=== PATIENT | female | born 1930 | race Caucasian/White ===

== ENCOUNTER 2019-01-01 18:12 | Emergency (ER) | payer MEDICARE, BC ==
--- NOTE | 2019-01-01 18:26 | EDM.PDOC ---
ED HPI GENERAL MEDICAL PROBLEM - General Chief Complaint: Neuro Symptoms/Deficits Stated Complaint: code green Time Seen by Provider: 01/01/19 18:12 Source of Information: Reports: EMS, Family - History of Present Illness INITIAL COMMENTS - FREE TEXT/NARRATIVE: Patient comes into the emergency department by EMS as a code green. Family the patient had contacted 911 regarding abnormal speech disturbance on telephone. Family states that the patient was not making any sense during a telephone conversation and they alerted EMS. EMS on scene said the patient was not answering any questions appropriately initially they did do a blood sugar which showed 60. They also did an EKG which showed a bundle branch block-the patient does have extensive history cardiac disease. Prior to the patient presenting to the emergency department EMS state the patient was beginning to follow some commands. Nursing personnel emergency department had actually contacted patient one hour prior to her presenting to the ER and also earlier in the day. For an infusion of iron. Family's best recollection of last known well was approximately 9:30 AM today. Quality: Reports: Other Severity: Mild Improves with: Reports: None Worsens with: Reports: None Associated Symptoms: Reports: No Other Symptoms Treatments [employer]: Reports: IV/IO, See EMS Report - Related Data Allergies Allergy/AdvReac Type Severity Reaction Status Date / Time HOSSEIN Inhibitors Allergy Other Verified 10/01/18 09:13 prednisone Allergy Other Verified 10/01/18 09:13 baclofen AdvReac Confusion Verified 10/01/18 09:13 metronidazole [From Flagyl] AdvReac Nausea Verified 10/01/18 09:13 Home Meds: Home Meds Aspirin [Ecotrin] 81 mg PO DAILY 09/26/15 [History] Calcium Carbonate/Vitamin D2 [Oyster Shell Calcium-Vit D Tab] 1 each PO DAILY [History] Clobetasol Propionate/Emoll [Temovate Emollient 0.05%] 60 gm TP BID 09/26/15 [ History] Diclofenac Sodium [Voltaren 1% Gel] 100 gm TOP QID 09/26/15 [History] Estrogens, Conjugated [Premarin Vaginal Crm] 0.5 gm VAG Q3D 09/26/15 [History] Furosemide [Lasix] 20 mg PO DAILY 09/26/15 [History] Insulin Detemir [Levemir Flextouch] 13 unit SQ BID 09/26/15 [History] Insulin Lispro [Humalog] 100 unit SQ ASDIRECTED 09/26/15 [History] Metoprolol Tartrate [Lopressor] 50 mg PO TID 09/26/15 [History] Psyllium with Sucrose [Metamucil] 1 each PO DAILY 09/26/15 [History] amLODIPine [Norvasc] 5 mg PO BEDTIME 09/26/15 [History] cloNIDine HCl [Catapres] 0.3 mg PO TID 09/26/15 [History] traMADol HCl [Ultram] 50 mg PO DAILY 09/26/15 [History] Albuterol [Ventolin HFA] 1 puff INH Q4HR PRN 10/01/18 [History] Ascorbate Calcium [Vitamin C] 500 mg PO DAILY 10/01/18 [History] Escitalopram [Lexapro] 10 mg PO DAILY 10/01/18 [History] Multivitamin with Iron [Multivitamins with Iron] 1 each PO DAILY 10/01/18 [ History] Omeprazole 20 mg PO DAILY 10/01/18 [History] Ondansetron [Zofran] 4 mg PO Q6H PRN 10/01/18 [History] Pravastatin [Pravachol] 10 mg PO DAILY 10/01/18 [History] hydrALAZINE [Apresoline] 75 mg PO TID 10/01/18 [History] Past Medical History HEENT History: Reports: Cataract Cardiovascular History: Reports: Heart Failure, High Cholesterol, Hypertension Genitourinary History: Reports: Chronic Renal Insuffiency Endocrine/Metabolic History: Reports: Diabetes, Type II ED ROS GENERAL - Review of Systems Review Of Systems: See Below Constitutional: Reports: No Symptoms ED EXAM, GENERAL - Physical Exam Exam: See Below Exam Limited By: No Limitations General Appearance: Alert, WD/WN Eye Exam: Bilateral Eye: EOMI, PERRL Nose: Normal Inspection Head: Atraumatic, Normocephalic Respiratory/Chest: No Respiratory Distress, Lungs Clear, Normal Breath Sounds, No Accessory Muscle Use Cardiovascular: Normal Peripheral Pulses, Regular Rate, Rhythm, No Edema GI/Abdominal: Normal Bowel Sounds, Soft, Non-Tender, No Distention Back Exam: Normal Inspection, Full Range of Motion Extremities: Normal Inspection, Normal Range of Motion, No Pedal Edema Neurological: Alert, Oriented, Normal Reflexes Psychiatric: Normal Affect, Normal Mood Skin Exam: Warm, Dry, Intact, Normal Color Course - Vital Signs Last Recorded V/S: Last Vital Signs Temp 36.1 C 01/01/19 18:20 Pulse 57 L 01/01/19 18:20 Resp 14 01/01/19 18:20 BP 174/59 H 01/01/19 18:20 Pulse Ox 95 01/01/19 18:20 - Orders/Labs/Meds Orders: Active Orders 24 hr Category Date Time Status INR,PT,PROTHROMBIN TIME [COAG] Routine Lab 01/01/19 18:30 Received PTT,PARTIAL THROMBOPLSTIN TIME [COAG] Routine Lab 01/01/19 18:30 Received Labs: Laboratory Tests 01/01/19 01/01/19 01/01/19 Range/Units 18:30 18:30 18:34 WBC 11.9 H (4.0-10.0) x10^3/uL RBC 3.36 L (4.00-5.50) x10^6/uL Hgb 10.2 L (12.0-16.0) g/dL Hct 32.3 L (33.0-47.0) % MCV 96.1 H (78.0-93.0) fL MCH 30.4 (26.0-32.0) pg MCHC 31.6 L (32.0-36.0) g/dL RDW Coeff of Ignacia 13.7 (10.0-15.0) % Plt Count 211 (130-400) x10^3/uL Neut % (Auto) 80.3 H (50.0-80.0) % Lymph % (Auto) 13.9 L (25.0-50.0) % Emmet % (Auto) 4.8 (2.0-11.0) % Eos % (Auto) 0.8 (0.0-4.0) % Baso % (Auto) 0.2 (0.2-1.2) % Sodium 142 (136-145) mmol/L Potassium 4.5 (3.5-5.1) mmol/L Chloride 106 (98-107) mmol/L Carbon Dioxide 25 (21-32) mmol/L Anion Gap 15.5 (10-20) mmol/L BUN 31 H (7-18) mg/dL Creatinine 2.1 H (0.55-1.02) mg/dL Est Cr Clr Drug Dosing TNP Estimated GFR (MDRD) 22 Glucose 63 L (74-106) mg/dL POC Glucose 54 L (74-106) mg/dL Calcium 9.3 (8.5-10.1) mg/dL POC Troponin I (0.00-0.08) ng/mL 01/01/19 Range/Units 18:37 WBC (4.0-10.0) x10^3/uL RBC (4.00-5.50) x10^6/uL Hgb (12.0-16.0) g/dL Hct (33.0-47.0) % MCV (78.0-93.0) fL MCH (26.0-32.0) pg MCHC (32.0-36.0) g/dL RDW Coeff of Ignacia (10.0-15.0) % Plt Count (130-400) x10^3/uL Neut % (Auto) (50.0-80.0) % Lymph % (Auto) (25.0-50.0) % Emmet % (Auto) (2.0-11.0) % Eos % (Auto) (0.0-4.0) % Baso % (Auto) (0.2-1.2) % Sodium (136-145) mmol/L Potassium (3.5-5.1) mmol/L Chloride (98-107) mmol/L Carbon Dioxide (21-32) mmol/L Anion Gap (10-20) mmol/L BUN (7-18) mg/dL Creatinine (0.55-1.02) mg/dL Est Cr Clr Drug Dosing Estimated GFR (MDRD) Glucose (74-106) mg/dL POC Glucose (74-106) mg/dL Calcium (8.5-10.1) mg/dL POC Troponin I 0.00 (0.00-0.08) ng/mL Meds: Medications Discontinued Medications Generic Name Dose Route Start Last Admin Trade Name Freq PRN Reason Stop Dose Admin Dextrose Confirm 01/01/19 18:40 01/01/19 18:40 Glutose 15 Administered 01/01/19 18:41 15 gm Dose Administration 15 gm .ROUTE .STK-MED ONE Dextrose 15 gm 01/01/19 18:49 Glutose 15 PO 01/01/19 18:50 ONETIME ONE Departure - Departure Time of Disposition: 18:57 Disposition: Home, Self-Care 01 Condition: Fair Clinical Impression: Cerebral embolism - Discharge Information *PRESCRIPTION DRUG MONITORING PROGRAM REVIEWED*: Not Applicable *COPY OF PRESCRIPTION DRUG MONITORING REPORT IN PATIENT BRIDGET: Not Applicable Forms: Interfacility Transfer EMTALA - Problem List Review Problem List Initiated/Reviewed/Updated: Yes - My Orders Last 24 Hours: My Active Orders 01/01/19 18:30 INR,PT,PROTHROMBIN TIME [COAG] Routine PTT,PARTIAL THROMBOPLSTIN TIME [COAG] Routine - Assessment/Plan Last 24 Hours: My Active Orders 01/01/19 18:30 INR,PT,PROTHROMBIN TIME [COAG] Routine PTT,PARTIAL THROMBOPLSTIN TIME [COAG] Routine Assessment:: neurological deficits Plan: 1. CT of the head completed in the emergency department. Results reviewed with patient and family 2. Labs completed emergency department. Results reviewed with patient and family 3. Stroke protocol followed NIH-2 4. 1840 Radiology contacted regarding an emboli formation in the left middle cerebral artery 5. 1845 [facility] once call contacted. 1856 Dr. Baugh contacted 6. Blood sugar in ER is 54. Pt is NPO and has not eaten. Glucagon oral given at the bedside 7. Dr. Baugh requesting emergent transfer for possible thrombectomy since the patient is outside the window for TPA. 8. 1858 EMS contacted regarding transfer. Family and patient is updated and all questions and concerns addressed prior to discharge
[2019-01-01] MEDS: Glucose Gel 15 GM in 37.5 GM Tube ONE (18:40)
[2019-01-01 18:41] VITALS: BP 174/59
--- NOTE | 2019-01-01 18:46 | CT ---
[id number] CT/CT Head Stroke Protocol Exam: CT Head Stroke Protocol Clinical Data: NEUROLOGIC DEFICIT COMPARISON: CORRELATION IS MADE WITH THE EXAM OF JULY 30, 2018. FINDINGS: A tiny punctate hyperdensity is seen in the left central sulcus on image 37, series 2. This is not seen in review of the last exam. This is consistent with a tiny embolus in the angular branch of the left middle cerebral artery. There is subtle hypodensity in the insular cortex on the left. This is seen on image 23, series 2. This appears to have been present previously on the last exam, on image 20, series 2. There is no mass or mass effect. There is no hemorrhage or hydrocephalus. There are no extra-axial fluid collections. There may be an additional punctate embolus in the region of the sylvian fissure on the left corresponding to the M2/M3 distribution of the left middle cerebral artery. This would affect the anterior division of the left middle cerebral artery and potentially explain the speech abnormality or Broca's aphasia in Brodmann's area 44. Report called at time of the dictation. The aspect score is 10. IMPRESSION: ABOVE DESCRIBED FINDINGS CONSISTENT WITH TINY EMBOLI INVOLVING THE ANTERIOR AND POSTERIOR DIVISIONS OF THE LEFT MIDDLE CEREBRAL ARTERY. Montrell Mota MD 01/01/19 [id number] Thank you for allowing us to participate in the care of your patient.
[2019-01-01] MEDS ORDERED: Glucose Gel 15 GM in 37.5 GM Tube PO ONE (18:49)
[2019-01-01 18:52] LABS: CHLORIDE,CL 106 mmol/L (98-107); SODIUM,NA 142 mmol/L (136-145)
[2019-01-01 18:53] LABS: ANION GAP 15.5 mmol/L (10-20)
== END 2019-01-01 19:02 | disposition home or self-care (01) ==
LOC: VM.ED 18:12
DX: I66.02 Occlusion and stenosis of left middle cerebral artery (principal); I13.0 Hypertensive heart and chronic kidney disease with heart failure and stage 1 through stage 4 chronic kidney disease, or unspecified chronic kidney disease; I50.9 Heart failure, unspecified; N18.9 Chronic kidney disease, unspecified; E11.22 Type 2 diabetes mellitus with diabetic chronic kidney disease; Z79.899 Other long term (current) drug therapy; Z88.1 Allergy status to other antibiotic agents; Z79.82 Long term (current) use of aspirin; Z79.4 Long term (current) use of insulin
CPT/HCPCS: 36415; 70450; 80048; 82962; 84484; 85025; 85610; 85730; 99283-GF; 99291-25; A9270-GY

== ENCOUNTER 2022-02-22 11:00 | Observation (INO) | payer MEDICARE, BC ==
[2022-02-22 11:52] LABS: ANION GAP 18.2 mmol/L (5-15); CHLORIDE,CL 105 mmol/L (98-107); ESTIMATED GFR 16 mL/min (>=60); SODIUM,NA 139 mmol/L (136-145)
[2022-02-22] MEDS ORDERED: Sodium Chloride 0.9% 10 ML Syringe FLUSH PRN (13:39)
[2022-02-22] MEDS ORDERED: Ondansetron 4 MG Tab.DIS PO PRN (13:39)
[2022-02-22] MEDS ORDERED: Acetaminophen/HYDROcodone 325-5 MG Tab PO PRN (13:39)
[2022-02-22] MEDS ORDERED: Acetaminophen 325 MG Tab PO PRN (13:39)
[2022-02-22] MEDS ORDERED: Ondansetron 4 MG/2 ML SDV IV PRN (13:39)
[2022-02-22] MEDS ORDERED: traMADol 50 MG Tab PO PRN (13:42)
[2022-02-22] MEDS ORDERED: Hypromellose 0.3% Ophth Soln 15 ML Bottle EYEBOTH PRN (13:42)
[2022-02-22] MEDS ORDERED: [UNRECOGNIZED DRUG - OTHER] TOP PRN (13:42)
[2022-02-22] MEDS ORDERED: Albuterol 0.083% 2.5 MG/3 ML Neb Soln INH PRN (13:42)
[2022-02-22] MEDS ORDERED: Non-Formulary Medication 1 Each (Estrogens, Conjugated [Premarin Vaginal Crm] 30 GM Tube) VAG SCH (13:45)
[2022-02-22] MEDS ORDERED: Calcitriol 0.25 MCG Cap PO SCH (13:45)
[2022-02-22] MEDS ORDERED: Sodium Chloride 0.9% 1,000 ML IV SCH (13:45)
[2022-02-22] MEDS ORDERED: Furosemide 20 MG Tab PO PRN (14:00)
[2022-02-22] MEDS ORDERED: Aspirin 81 MG Tab.Chew PO ONE (16:58)
[2022-02-22] MEDS ORDERED: Insulin Lispro 100 Units/ML 3 ML Vial SUBCUT SCH (18:00)
[2022-02-22] MEDS ORDERED: INULIN PO SCH (21:00)
[2022-02-22] MEDS ORDERED: Non-Formulary Medication 1 Each (Ferrous Fumarate/Vitamin C [Vitron-C] 1 TAB Tablet) PO SCH (21:00)
[2022-02-22] MEDS ORDERED: Aspirin 81 MG Tab.EC PO SCH (21:00)
[2022-02-22] MEDS ORDERED: Metoprolol Tartrate 25 MG Tab PO SCH (21:00)
[2022-02-22] MEDS ORDERED: hydrALAZINE 25 MG Tab PO SCH (21:00)
[2022-02-22] MEDS ORDERED: CHROMIUM PICOLINATE PO SCH (21:00)
[2022-02-22] MEDS ORDERED: [UNRECOGNIZED DRUG - OTHER] PO SCH (21:00)
[2022-02-22] MEDS ORDERED: cloNIDine 0.1 MG Tab PO SCH (21:00)
[2022-02-22] MEDS ORDERED: Beta-Carotene (Vitamin A) w/Vitamin C & E plus Minerals Tab PO SCH (21:00)
[2022-02-23] MEDS ORDERED: Omeprazole 20 MG Cap.CR PO SCH (07:00)
[2022-02-23] MEDS ORDERED: Non-Formulary Medication 1 Each (Insulin Lispro [Humalog] 100 UNIT/ML Pen) SQ SCH (09:00)
[2022-02-23] MEDS ORDERED: Ascorbic Acid 500 MG Tab PO SCH (09:00)
[2022-02-23] MEDS ORDERED: Multivitamins with Iron/Calcium/Folic Acid/Minerals Tab PO SCH (09:00)
[2022-02-23] MEDS ORDERED: Insulin Glarg,Human.Rec.Analog 100 Unit/ML SUBCUT SCH (09:00)
[2022-02-23] MEDS ORDERED: Calcium Carbonate/Vitamin D3 1250 MG-5 MCG Tab PO SCH (09:00)
[2022-02-23] MEDS ORDERED: Pravastatin 20 MG Tab PO SCH (09:00)
[2022-02-23] MEDS ORDERED: Citalopram 20 MG Tab PO SCH (09:00)
[2022-02-23] MEDS ORDERED: Furosemide 20 MG Tab PO SCH (09:00)
[2022-02-23] MEDS ORDERED: Losartan 25 MG Tab PO SCH (09:00)
[2022-02-23] MEDS ORDERED: amLODIPine 10 MG Tab PO SCH (09:00)
== END 2022-02-22 18:35 | disposition short-term general hospital (02) ==
LOC: VM.ED 11:00 → VM.MS 12:21
PROVIDERS: ADMIT Physician Assistant Medical; ATTEND Physician Assistant Medical
DX: R77.8 Other specified abnormalities of plasma proteins (principal); I25.10 Atherosclerotic heart disease of native coronary artery without angina pectoris; I13.0 Hypertensive heart and chronic kidney disease with heart failure and stage 1 through stage 4 chronic kidney disease, or unspecified chronic kidney disease; E78.00 Pure hypercholesterolemia, unspecified; I50.9 Heart failure, unspecified; E11.22 Type 2 diabetes mellitus with diabetic chronic kidney disease; N18.4 Chronic kidney disease, stage 4 (severe); G89.4 Chronic pain syndrome; D50.9 Iron deficiency anemia, unspecified; Z88.8 Allergy status to other drugs, medicaments and biological substances; Z79.82 Long term (current) use of aspirin; Z79.899 Other long term (current) drug therapy; Z95.1 Presence of aortocoronary bypass graft; Z79.4 Long term (current) use of insulin
CPT/HCPCS: 36415; 80053; 81001; 82550; 82947; 83615; 84484; 85025; 86140; 87086; 93005; 93010; 96374; 99285; A9270-GY; G0378; J2405